=== PATIENT | female | born 1985 | race American Indian/Alaskan Native ===

== ENCOUNTER 2017-06-16 13:26 | Observation (INO) | payer MEDICAID, OTHER ==
[2017-06-16] MEDS ORDERED: Ketorolac 60 MG/2 ML SDV IM ONE (13:46)
--- NOTE | 2017-06-16 14:36 | EDM.PDOC ---
ED HPI GENERAL MEDICAL PROBLEM - General Chief Complaint: Abdominal Pain Stated Complaint: ABDOMINAL PAIN Time Seen by Provider: 06/16/17 13:30 Source of Information: Reports: Patient History Limitations: Reports: No Limitations - History of Present Illness INITIAL COMMENTS - FREE TEXT/NARRATIVE: c/o abd pain x 2m pain in upper abd in epigastrium to R and L of midline and down a little towards umbilicus, however on exam she was tender across the lower abd as well BM x 1 today, did not change pain no bfast, ate hamburger for lunch, no change in pain PSH: c/s x 2, TL, hernia repair done at same time as c/s and TL altho pt not sure where morbidly obese inc'd pian x 1w, inc'd pain x 3d, continuous pain x 3d just moved to area, has not seen a MD in past 3m Upper Abdomen Pain Score (Numeric/FACES): 8 - Related Data Allergies Allergy/AdvReac Type Severity Reaction Status Date / Time amoxicillin Allergy Rash Verified 06/16/17 13:52 Home Meds: Home Meds Formoterol/Mometasone [Dulera 100 MCG/5 MCG] 2 inh INH BID 06/16/17 [History] 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 Denies: Fever, Chills, Night Sweats HEENT: Reports: No Symptoms Respiratory: Reports: No Symptoms Cardiovascular: Reports: No Symptoms. Denies: Chest Pain Endocrine: Reports: No Symptoms GI/Abdominal: Reports: Abdominal Pain. Denies: Constipation, Diarrhea, Nausea, Vomiting : Reports: No Symptoms Musculoskeletal: Reports: No Symptoms Skin: Reports: No Symptoms Neurological: Reports: No Symptoms Psychiatric: Reports: No Symptoms Hematologic/Lymphatic: Reports: No Symptoms Immunologic: Reports: No Symptoms ED EXAM, GI/ABD - Physical Exam Exam: See Below Exam Limited By: No Limitations General Appearance: Alert, WD/WN, No Apparent Distress Ears: Normal External Exam Nose: Normal Inspection, Normal Mucosa, No Blood Throat/Mouth: Normal Inspection, Normal Lips, Normal Teeth, Normal Gums, Normal Oropharynx, Normal Voice, No Airway Compromise Head: Atraumatic, Normocephalic Neck: Normal Inspection, Supple, Non-Tender, Full Range of Motion Respiratory/Chest: No Respiratory Distress, Lungs Clear, Normal Breath Sounds, No Accessory Muscle Use, Chest Non-Tender Cardiovascular: Regular Rate, Rhythm, No Edema, No Gallop, No Murmur, No Rub GI/Abdominal Exam: Other (very large circumference, BS present, nonspecific tender across upper abd, mid abd and lower abd, not localized, only flanks NT) Back Exam: Normal Inspection, Full Range of Motion, NT Extremities: Normal Inspection, Normal Range of Motion, Non-Tender, Other ( trace pretib edema b/l) Neurological: Alert, Oriented, CN II-XII Intact, Normal Cognition, No Motor/ Sensory Deficits Psychiatric: Normal Affect, Normal Mood Skin Exam: Warm, Dry, Intact, Normal Color, No Rash Lymphatic: No Adenopathy Course - Vital Signs Last Recorded V/S: Last Vital Signs Temp 36.3 C 06/16/17 13:26 Pulse 108 H 06/16/17 13:26 Resp 18 06/16/17 13:26 BP 148/93 H 06/16/17 13:26 Pulse Ox 99 06/16/17 13:26 - Orders/Labs/Meds Orders: Active Orders 24 hr Category Date Time Status CULTURE URINE [RM] Stat Lab 06/16/17 14:06 Received LIPASE [REF] Stat Lab 06/16/17 14:15 Received Labs: Laboratory Tests 06/16/17 06/16/17 06/16/17 Range/Units 14:06 14:15 14:15 WBC 10.3 (4.5-12.0) X10-3/uL RBC 5.67 H (3.23-5.20) x10(6)uL Hgb 14.2 (11.5-15.5) g/dL Hct 44.4 (30.0-51.3) % MCV 78.2 L (80-96) fL MCH 25.0 L (27.7-33.6) pg MCHC 31.9 L (32.2-35.4) g/dL RDW 16.4 H (11.5-15.5) % Plt Count 245 (125-369) X10(3)uL MPV 10.6 H (7.4-10.4) fL Neut % (Auto) 70.5 (46-82) % Lymph % (Auto) 22.4 (13-37) % [place] % (Auto) 5.4 (4-12) % Eos % (Auto) 1 (1.0-5.0) % Baso % (Auto) 1 (0-2) % Neut # (Auto) 7.2 (1.6-8.3) # Lymph # (Auto) 2.3 (0.6-5.0) # [place] # (Auto) 0.6 (0.0-1.3) # Eos # (Auto) 0.1 (0.0-0.8) # Baso # (Auto) 0.1 (0.0-0.2) # Sodium 143 (135-145) mmol/L Potassium 3.8 (3.5-5.3) mmol/L Chloride 105 (100-110) mmol/L Carbon Dioxide 28 (21-32) mmol/L BUN 11 (7-18) mg/dL Creatinine 1.0 (0.55-1.02) mg/dL Est Cr Clr Drug Dosing 91.94 mL/min Estimated GFR (MDRD) > 60 (>60) BUN/Creatinine Ratio 11.0 (9-20) Glucose 173 H (80-116) mg/dL Calcium 9.1 (8.6-10.2) mg/dL Total Bilirubin 0.3 (0.1-1.3) mg/dL AST 51 H (5-25) IU/L ALT 67 H (12-36) U/L Alkaline Phosphatase 109 (56-112) IU/L C-Reactive Protein (0.5-0.9) mg/dL Total Protein 7.8 (6.0-8.0) g/dL Albumin 3.3 L (3.5-5.2) g/dL Globulin 4.5 g/dL Albumin/Globulin Ratio 0.7 Amylase 29 (25-115) U/L Urine Color (YELLOW) Urine Appearance (CLEAR) Urine pH (5.0-6.5) Ur Specific [place] (1.010-1.025) Urine Protein (NEGATIVE) mg/dL Urine Glucose (UA) (NEGATIVE) mg/dL Urine Ketones (NEGATIVE) mg/dL Urine Occult Blood (NEGATIVE) Urine Nitrite (NEGATIVE) Urine Bilirubin (NEGATIVE) Urine Urobilinogen (NEGATIVE) mg/dL Ur Leukocyte Esterase (NEGATIVE) Urine RBC (0) Urine WBC (0) Ur Squamous Epith Cells (NS,R,O) Urine Bacteria (NS) Urine HCG, Qual Negative (NEGATIVE) 06/16/17 06/16/17 Range/Units 14:15 14:37 WBC (4.5-12.0) X10-3/uL RBC (3.23-5.20) x10(6)uL Hgb (11.5-15.5) g/dL Hct (30.0-51.3) % MCV (80-96) fL MCH (27.7-33.6) pg MCHC (32.2-35.4) g/dL RDW (11.5-15.5) % Plt Count (125-369) X10(3)uL MPV (7.4-10.4) fL Neut % (Auto) (46-82) % Lymph % (Auto) (13-37) % [place] % (Auto) (4-12) % Eos % (Auto) (1.0-5.0) % Baso % (Auto) (0-2) % Neut # (Auto) (1.6-8.3) # Lymph # (Auto) (0.6-5.0) # [place] # (Auto) (0.0-1.3) # Eos # (Auto) (0.0-0.8) # Baso # (Auto) (0.0-0.2) # Sodium (135-145) mmol/L Potassium (3.5-5.3) mmol/L Chloride (100-110) mmol/L Carbon Dioxide (21-32) mmol/L BUN (7-18) mg/dL Creatinine (0.55-1.02) mg/dL Est Cr Clr Drug Dosing mL/min Estimated GFR (MDRD) (>60) BUN/Creatinine Ratio (9-20) Glucose (80-116) mg/dL Calcium (8.6-10.2) mg/dL Total Bilirubin (0.1-1.3) mg/dL AST (5-25) IU/L ALT (12-36) U/L Alkaline Phosphatase (56-112) IU/L C-Reactive Protein 3.4 H* (0.5-0.9) mg/dL Total Protein (6.0-8.0) g/dL Albumin (3.5-5.2) g/dL Globulin g/dL Albumin/Globulin Ratio Amylase (25-115) U/L Urine Color Yellow (YELLOW) Urine Appearance Slightly cloudy (CLEAR) Urine pH 5.0 (5.0-6.5) Ur Specific [place] 1.020 (1.010-1.025) Urine Protein Negative (NEGATIVE) mg/dL Urine Glucose (UA) Normal (NEGATIVE) mg/dL Urine Ketones 15 H (NEGATIVE) mg/dL Urine Occult Blood Moderate H (NEGATIVE) Urine Nitrite Negative (NEGATIVE) Urine Bilirubin Negative (NEGATIVE) Urine Urobilinogen Normal (NEGATIVE) mg/dL Ur Leukocyte Esterase Negative (NEGATIVE) Urine RBC 0-5 (0) Urine WBC 5-10 (0) Ur Squamous Epith Cells Moderate H (NS,R,O) Urine Bacteria Many H (NS) Urine HCG, Qual (NEGATIVE) Meds: Medications Discontinued Medications Generic Name Dose Route Start Last Admin Trade Name Toño PRN Reason Stop Dose Admin Ketorolac Tromethamine 60 mg 06/16/17 13:46 06/16/17 13:59 Toradol IM 06/16/17 13:47 60 mg ONETIME ONE Administration - Re-Assessments/Exams Free Text/Narrative Re-Assessment/Exam: 06/16/17 16:21 WBC 10k and at ULN, no left shift, no fever. However, CRP 3.4 and pt still quite tender with guarding and rebound in RLQ despite Toradol 60 mg IM. Pt's weight is 580 lbs by self report, her abd circumference is 75". CT scan in [place] can accommodate someone who is both >650 lb and <70" circumference. Pt's clinical exam is concerning for possible acute appendicitis. D/w Dr Little regarding following pt in hospital based on clinical parameters. He said that none of the 3 surgeons in [facility] would do surgery here and that she would need to be transferred if her pain worsened. D/w Dr Avendano who agreed to admit and to transfer pt tomorrow if necessary. Will give IVF, tx pain with scheduled Toradol and prn MS, and tx with antibiotic for possible diverticulitis. Will empirically do a bowel cleanout with Ducolox supp and magnesium citrate. Departure - Departure Time of Disposition: 16:27 Disposition: Refer to Observation Condition: Fair Clinical Impression: Abdominal pain, acute, right lower quadrant, Elevated C-reactive protein (CRP) , Dehydration, Hyperglycemia - Discharge Information Referrals: PCP,None [Primary Care Provider] - Forms: ED Department Discharge - My Orders Last 24 Hours: My Active Orders 06/16/17 14:06 CULTURE URINE [RM] Stat 06/16/17 14:15 LIPASE [REF] Stat - Assessment/Plan Last 24 Hours: My Active Orders 06/16/17 14:06 CULTURE URINE [RM] Stat 06/16/17 14:15 LIPASE [REF] Stat
[2017-06-16] MEDS ORDERED: Ondansetron 4 MG/2 ML SDV IV PRN (16:49)
[2017-06-16] MEDS ORDERED: Magnesium Citrate Solution 296 ML Bottle PO ONE (16:49)
[2017-06-16] MEDS ORDERED: Bisacodyl 10 MG Supp RECTAL ONE (16:49)
[2017-06-16] MEDS ORDERED: Acetaminophen 650 MG Supp RECTAL PRN (16:49)
[2017-06-16] MEDS ORDERED: Ciprofloxacin in D5W 400 MG in Premix Bag 1 BAG IV SCH ×2 (17:00)
[2017-06-16] MEDS ORDERED: Sodium Chloride 0.9% 1,000 ML IV SCH (17:00)
[2017-06-16] MEDS ORDERED: Morphine 4 MG/ML Syringe IVPUSH PRN (17:01)
[2017-06-16] MEDS ORDERED: metroNIDAZOLE/Normal Saline 500 MG in Premix Bag 1 BAG IV SCH (18:00)
--- NOTE | 2017-06-16 18:04 | PCM.HP ---
H&P History of Present Illness - General Date of Service: 06/16/17 Source of Information: Patient History Limitations: Reports: No Limitations - History of Present Illness Initial Comments - Free Text/Narative: This is a 32-year-old morbidly obese female that came to the ER with abdominal pain that she's had for several months. She says across the top of her abdomen but it's getting worse. To see in the ER and the ER doc felt her right lower quadrant was the worst pain. Because of her size and over 500 pound she was unable to fit into the CT scan. She had a normal white count is worried that is possibly could be early appendicitis. Patient states the pain is worse when she drinks carbonated beverages and caffeinated beverages. She's had her gallbladder out the past. She said 2 C-sections. She is passes stool and occasionally low but blood. No nausea, vomiting, fevers or chills. She denies dysuria, pyuria, hematuria. And because she was not able to fit into the scanner he wanted to watch her overnight to make sure that she is not getting worse or have an appendicitis. 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 History: Psychiatric History: Reports: Other (See Below) Other Psychiatric History: Post depression - Past Surgical History GI Surgical History: Reports: Cholecystectomy, Hernia, Abdominal Female Surgical History: Reports: Section, Tubal Ligation Social & Family History - Family History Family Medical History: Noncontributory - Tobacco Use Smoking Status *Q: Never Smoker - Caffeine Use Caffeine Use: Reports: None - Recreational Drug Use Recreational Drug Use: No H&P Review of Systems - Review of Systems: Review Of Systems: See Below General: Reports: No Symptoms HEENT: Reports: No Symptoms Pulmonary: Reports: No Symptoms Cardiovascular: Reports: No Symptoms Gastrointestinal: Reports: Abdominal Pain Genitourinary: Reports: No Symptoms Musculoskeletal: Reports: No Symptoms Skin: Reports: No Symptoms Psychiatric: Reports: No Symptoms Neurological: Reports: No Symptoms Hematologic/Lymphatic: Reports: No Symptoms Immunologic: Reports: No Symptoms Exam - Exam Exam: See Below - Vital Signs Vital Signs: Last Vital Signs Temp 98.3 F 06/16/17 16:30 Pulse 92 06/16/17 16:30 Resp 20 06/16/17 16:30 BP 150/105 H 06/16/17 16:30 Pulse Ox 96 06/16/17 16:30 Weight: 580 lb - Exam General: Alert, Oriented, Cooperative HEENT: Hearing Intact, Mucosa Moist & [place], Posterior Pharynx Clear, TMs Clear Neck: Supple, Trachea Midline Lungs: Clear to Auscultation, Normal Respiratory Effort Cardiovascular: Regular Rate, Regular Rhythm, Normal S1, Normal S2. No: Systolic Murmur, Diastolic Murmur GI/Abdominal Exam: Normal Bowel Sounds, Soft, No Organomegaly, No Distention, No Abnormal Bruit, No Mass, Tender (Right upper and lower quadrant.), Other ( Obese). No: Guarding, Rigid, Rebound Back Exam: Normal Inspection, Full Range of Motion Extremities: Normal Inspection, Normal Range of Motion, Non-Tender, No Pedal Edema Skin: Warm, Dry, Intact Neurological: Strength Equal Bilateral, Normal Speech, Normal Tone Neuro Extensive - Mental Status: Alert, Oriented x3, Normal Mood/Affect, Normal Cognition Neuro Extensive - Motor, Sensory, Reflexes: Normal Gait Psychiatric: Alert, Normal Affect, Normal Mood - Patient Data Result Diagrams: 06/16/17 14:15 06/16/17 14:15 *Q Meaningful Use (ADM) - VTE *Q VTE Criteria *Q: - Stroke *Q Stroke Criteria *Q: - AMI *Q AMI Criteria *Q: - Problem List (1) Abdominal pain, acute, right lower quadrant SNOMED Code(s): 476551279 ICD Code: R10.31 - RIGHT LOWER QUADRANT PAIN Status: Acute Current Visit : Yes Problem List Initiated/Reviewed/Updated: Yes Orders Last 24hrs: Active Orders 24 hr Category Date Time Status Bedrest Bathroom Privileges [RC] ASDIRECTED Care 06/16/17 16:49 Active Blood Glucose Check, Bedside [RC] QIDACANDBED Care 06/16/17 16:49 Active Oxygen Therapy [RC] PRN Care 06/16/17 16:49 Active Ready for Discharge [RC] PER UNIT ROUTINE Care 06/16/17 17:56 Active Vital Signs [RC] Q4H Care 06/16/17 16:49 Active Nothing per Oral Now Diet [DIET] Diet 06/17/17 Dinner Active C-REACTIVE PROTEIN [CHEM] AM Lab 06/17/17 05:11 Ordered CBC WITH AUTO DIFF [HEME] AM Lab 06/17/17 05:11 Ordered SEDIMENTATION RATE MANUAL [HEME] AM Lab 06/17/17 05:11 Ordered Acetaminophen [Tylenol] Med 06/16/17 16:49 Active 650 mg RECTAL Q4H PRN Ketorolac [Toradol] Med 06/16/17 20:00 Active 30 mg IVPUSH Q6H PRN Mometasone/Formoterol [Dulera 100-5 MCG] Med 06/16/17 21:00 Active 2 puff IH BIDRT Ondansetron [Zofran] Med 06/16/17 16:49 Active 4 mg IV Q4H PRN Sodium Chloride 0.9% [Normal Saline] 1,000 ml Med 06/16/17 17:00 Active IV ASDIRECTED Sulfamethoxazole/Trimethoprim [Septra] Med 06/16/17 21:00 Ordered 1 tab PO BID Resuscitation Status Routine Resus Stat 06/16/17 16:49 Ordered Medication Orders Acetaminophen (Tylenol) 650 mg RECTAL Q4H PRN PRN Reason: Mild pain/fever Sodium Chloride (Normal Saline) 1,000 mls @ 125 mls/hr IV ASDIRECTED [facility] Ketorolac Tromethamine (Toradol) 30 mg IVPUSH Q6H PRN PRN Reason: Pain (moderate 4-6) Mometasone Furoate/Formoterol Fumar (Dulera 100-5 Mcg) 2 puff IH BIDRT [facility] Ondansetron HCl (Zofran) 4 mg IV Q4H PRN PRN Reason: Nausea/Vomiting Trimethoprim/Sulfamethoxazole (Septra) 1 tab PO BID [facility] Assessment/Plan Comment:: Discussed care with this patient. She states she does not want to stay the night. I think is reasonable to have her come back in the clinic in the morning recheck her white count. Risks of rupture discussed with the patient. She does not want anything for pain tonight. She'll be discharged to home.
--- NOTE | 2017-06-16 18:06 | PCM.DCSUM1 ---
Discharge Summary - Hospital Course Free Text/Narrative:: Hospital course-patient was admitted by the ER doc for observation. When I saw her she still had her pain in the right lower quadrant upper quadrant. She elected not to stay check think is reasonable. I told her is reasonable She comes in the clinic tomorrow and gets labs done. I said if her pain is worse at night she should go to [place] the ER. The surgeon was consulted by the ER doc. Because of her size she's not able to fit into the CT scan. And they states they would not operate on her down here anyway because of her size. Brief History: This is a 32-year-old morbidly obese female that came to the ER with abdominal pain that she's had for several months. She says across the top of her abdomen but it's getting worse. To see in the ER and the ER doc felt her right lower quadrant was the worst pain. Because of her size and over 500 pound she was unable to fit into the CT scan. She had a normal white count is worried that is possibly could be early appendicitis. Patient states the pain is worse when she drinks carbonated beverages and caffeinated beverages. She's had her gallbladder out the past. She said 2 C-sections. She is passes stool and occasionally low but blood. No nausea, vomiting, fevers or chills. She denies dysuria, pyuria, hematuria. And because she was not able to fit into the scanner he wanted to watch her overnight to make sure that she is not getting worse or have an appendicitis. - Discharge Data Discharge Date: 06/16/17 Discharge Disposition: Home, Self-Care 01 Condition: Fair - Discharge Diagnosis/Problem(s) (1) Abdominal pain, acute, right lower quadrant SNOMED Code(s): 729012795 ICD Code: R10.31 - RIGHT LOWER QUADRANT PAIN Status: Acute Current Visit : Yes - Patient Instructions Diet: Regular Diet as Tolerated Activity: As Tolerated Driving: May Drive Today Showering/Bathing: May Shower Notify Provider of: Increased Pain Other/Special Instructions: 1. Discharge to home. 2. Recheck as [facility] in a.m. with a CBC. 3. Discussed the risk of possible ruptured appendix if she has appendicitis. She understands. - Discharge Plan Prescriptions/Med Rec: Sulfamethoxazole/Trimethoprim [Bactrim Ds Tablet] 1 each PO BID #6 tablet Home Medications: Home Meds Formoterol/Mometasone [Dulera 100 MCG/5 MCG] 2 inh INH BID 06/16/17 [History] Sulfamethoxazole/Trimethoprim [Bactrim Ds Tablet] 1 each PO BID #6 tablet [Rx] Forms: ED Department Discharge Referrals: PCP,None [Primary Care Provider] - - Discharge Summary/Plan Comment DC Time >30 min.: No - Patient Data Vitals - Most Recent: Last Vital Signs Temp 98.3 F 06/16/17 16:30 Pulse 92 06/16/17 16:30 Resp 20 06/16/17 16:30 BP 150/105 H 06/16/17 16:30 Pulse Ox 96 06/16/17 16:30 Weight - Most Recent: 580 lb Med Orders - Current: Current Medications Acetaminophen (Tylenol) 650 mg RECTAL Q4H PRN PRN Reason: Mild pain/fever Sodium Chloride (Normal Saline) 1,000 mls @ 125 mls/hr IV ASDIRECTED [facility] Ketorolac Tromethamine (Toradol) 30 mg IVPUSH Q6H PRN PRN Reason: Pain (moderate 4-6) Mometasone Furoate/Formoterol Fumar (Dulera 100-5 Mcg) 2 puff IH BIDRT [facility] Ondansetron HCl (Zofran) 4 mg IV Q4H PRN PRN Reason: Nausea/Vomiting Trimethoprim/Sulfamethoxazole (Septra) 1 tab PO BID [facility] Discontinued Medications Bisacodyl (Dulcolax) 10 mg RECTAL ONETIME ONE Stop: 06/16/17 16:50 Ciprofloxacin/Dextrose 400 mg/ (Premix) 200 mls @ 200 mls/hr IV Q12H [facility] Metronidazole 500 mg/ Premix 100 mls @ 100 mls/hr IV Q8H [facility] Ketorolac Tromethamine (Toradol) 60 mg IM ONETIME ONE Stop: 06/16/17 13:47 Last Admin: 06/16/17 13:59 Dose: 60 mg Magnesium Citrate (Citrate Of Magnesia) 296 ml PO ONETIME ONE Stop: 06/16/17 16:50 Morphine Sulfate (Morphine) 4 mg IVPUSH Q4H PRN PRN Reason: Pain (severe 7-10) *Q Meaningful Use (DIS) - VTE *Q VTE Criteria *Q: - Stroke *Q Stroke Criteria *Q: - AMI *Q AMI Criteria *Q:
[2017-06-16] MEDS ORDERED: Sulfamethoxazole/Trimethoprim 800-160 MG Tab PO ONE (18:21)
[2017-06-16] MEDS ORDERED: Ketorolac 30 MG/ML SDV IVPUSH PRN (20:00)
[2017-06-16] MEDS ORDERED: Formoterol/Mometasone 100-5 MCG 8.8 GM Inhaler IH SCH (21:00)
[2017-06-16] MEDS ORDERED: Sulfamethoxazole/Trimethoprim 400-80 MG Tab PO SCH (21:00)
== END 2017-06-16 18:40 | disposition home or self-care (01) ==
LOC: FB.ED 13:26 → FB.MS 16:32
PROVIDERS: ADMIT Emergency Medicine; ATTEND Family Medicine
DX: R10.31 Right lower quadrant pain (principal); J45.909 Unspecified asthma, uncomplicated; Z79.899 Other long term (current) drug therapy; Z88.1 Allergy status to other antibiotic agents; Z90.49 Acquired absence of other specified parts of digestive tract; Z98.51 Tubal ligation status
CPT/HCPCS: 36415; 80053; 81001; 81025; 82150; 83690; 85025; 86140; 87086; 87088; 87186; 96372; 99284; A9270; J1885; G0378

== ENCOUNTER 2018-05-26 18:12 | Emergency (ER) | payer MEDICAID ==
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
[2018-05-26 18:59] LABS: HEMOGLOBIN A1C 8.5 % (4.5-6.2)
== END 2018-05-26 20:30 | disposition home or self-care (01) ==
LOC: FB.ED 18:12
DX: M54.5 Low back pain (principal); M54.2 Cervicalgia; M54.6 Pain in thoracic spine; R42 Dizziness and giddiness; H53.2 Diplopia; E66.01 Morbid (severe) obesity due to excess calories; G47.33 Obstructive sleep apnea (adult) (pediatric); E28.2 Polycystic ovarian syndrome; Z88.1 Allergy status to other antibiotic agents; Z91.040 Latex allergy status; Z68.45 Body mass index [BMI] 70 or greater, adult; Z98.890 Other specified postprocedural states; V89.2XXA Person injured in unspecified motor-vehicle accident, traffic, initial encounter
CPT/HCPCS: 36415; 80048; 83036; 85025; 85610; 99282

== ENCOUNTER 2021-07-22 19:27 | Emergency (ER) | payer OTHER ==
[2021-07-22] MEDS ORDERED: Ketorolac 30 MG/ML SDV IM STA (20:18)
== END 2021-07-22 21:00 | disposition home or self-care (01) ==
LOC: FB.ED 19:27
DX: S83.92XA Sprain of unspecified site of left knee, initial encounter (principal); Z88.0 Allergy status to penicillin; Z91.040 Latex allergy status; W01.0XXA Fall on same level from slipping, tripping and stumbling without subsequent striking against object, initial encounter
CPT/HCPCS: 73562-LT; 96372; 99282; 99283; J1885

== ENCOUNTER 2022-10-11 17:42 | Emergency (ER) | payer MEDICAID ==
[2022-10-11 19:40] LABS: BASOPHILS ABSOLUTE AUTO 0.1 x10-3/uL (0.0-0.1); BASOPHILS PERCENT AUTO 0.7 % (0.2-1.5); EOSINOPHILS ABSOLUTE AUTO 0.1 x10-3/uL (0.0-0.8); EOSINOPHILS PERCENT AUTO 0.9 % (0.6-8.1); HEMATOCRIT 45.7 % (34.2-48.2); HEMOGLOBIN 15.2 g/dL (11.4-15.5); LYMPHOCYTES ABSOLUTE AUTO 2.6 x10-3/uL (1.0-4.4); LYMPHOCYTES PERCENT AUTO 28.8 % (18.4-52.1); MEAN CORPUSCULAR HEMOGLOBIN 27.4 pg (23.9-33.9); MEAN CORPUSCULAR HGB CONC 33.3 g/dL (31.9-34.8); MEAN CORPUSCULAR VOLUME 82.5 fL (76.7-100.5); MEAN PLATELET VOLUME 11.3 fL (7.1-12.4); MONOCYTES ABSOLUTE AUTO 0.5 x10-3/uL (0.3-1.0); NEUTROPHILS ABSOLUTE AUTO 5.8 x10-3/uL (1.5-6.3); NEUTROPHILS PERCENT AUTO 63.6 % (30.8-76.2); PLATELET COUNT,PLT 203 x10(3)uL (151-488); RED BLOOD CELL COUNT 5.54 x10(6)uL (3.60-5.20); RED CELL DISTRIBUTION WIDTH 14.9 % (12.3-16.5); WHITE BLOOD CELL COUNT,WBC 9.2 x10-3/uL (3.0-10.3)
[2022-10-11 19:44] LABS: BLOOD UREA NITROGEN,BUN 11 mg/dL (7-18); CARBON DIOXIDE,CO2 27 mmol/L (21-32); CHLORIDE,CL 104 mmol/L (100-110); CREATININE 1.1 mg/dL (0.55-1.02); ESTIMATED GFR 67 mL/min (>60); GLUCOSE RANDOM 103 mg/dL (80-116); POTASSIUM,K 3.8 mmol/L (3.5-5.3); SODIUM,NA 141 mmol/L (135-145)
[2022-10-11 19:50] LABS: A/G RATIO 0.8; ALANINE AMINOTRANSFERASE,ALT 31 U/L (12-36); ALBUMIN 3.8 g/dL (3.5-5.2); ALKALINE PHOSPHATASE 117 IU/L (56-112); ASPARTATE AMNIOTRANSFERASE,AST 25 IU/L (5-25); BILIRUBIN TOTAL 0.7 mg/dL (0.1-1.3); PROTEIN TOTAL,TP 8.4 g/dL (6.0-8.0)
[2022-10-11] MEDS ORDERED: hydrOXYzine HCl 50 MG/ML SDV IM ONE (20:05)
[2022-10-11] MEDS: Morphine 10 MG/ML SDV IM ONE ×2 (20:30→20:37)
[2022-10-11] MEDS ORDERED: Ketorolac 30 MG/ML SDV IM ONE (20:34)
[2022-10-11] MEDS ORDERED: Ketorolac 30 MG/ML SDV ONE (20:35)
[2022-10-12 00:37] VITALS: BP 137/74; PULSE 84
== END 2022-10-11 21:15 | disposition home or self-care (01) ==
LOC: FB.ED 17:42
DX: R10.31 Right lower quadrant pain (principal); R10.13 Epigastric pain; J45.909 Unspecified asthma, uncomplicated; E11.9 Type 2 diabetes mellitus without complications; E66.9 Obesity, unspecified; Z98.890 Other specified postprocedural states; Z90.49 Acquired absence of other specified parts of digestive tract; Z88.0 Allergy status to penicillin; Z91.040 Latex allergy status; Z79.899 Other long term (current) drug therapy; Z79.84 Long term (current) use of oral hypoglycemic drugs
CPT/HCPCS: 36415; 80053; 84484; 85025; 86140; 93005; 96372; 99284; J1885; J2270; J3410

== ENCOUNTER 2022-12-28 19:18 | Emergency (ER) | payer MEDICAID ==
[2022-12-28] MEDS ORDERED: Diphtheria,Pertussis(Acell),Tetanus Vaccine 0.5 ML Syringe IM ONE (20:06)
== END 2022-12-28 20:24 | disposition home or self-care (01) ==
LOC: FB.ED 19:18
DX: S61.211A Laceration without foreign body of left index finger without damage to nail, initial encounter (principal); E11.9 Type 2 diabetes mellitus without complications; E66.9 Obesity, unspecified; Z68.43 Body mass index [BMI] 50.0-59.9, adult; Z23 Encounter for immunization; Z88.0 Allergy status to penicillin; Z91.040 Latex allergy status; Z79.84 Long term (current) use of oral hypoglycemic drugs; Z79.899 Other long term (current) drug therapy; W26.8XXA Contact with other sharp object(s), not elsewhere classified, initial encounter
CPT/HCPCS: 12001; 90471; 90715; 99282-25

== ENCOUNTER 2024-09-02 14:34 | Emergency (ER) | payer MEDICAID ==
[2024-09-02] MEDS: Sodium Chloride 0.9% 1,000 ML IV ONE (15:10)
[2024-09-02 15:14] LABS: BASOPHILS PERCENT AUTO 0.7 % (0.2-1.5); EOSINOPHILS ABSOLUTE AUTO 0.1 x10-3/uL (0.0-0.8); EOSINOPHILS PERCENT AUTO 0.8 % (0.6-8.1); HEMATOCRIT 39.7 % (34.2-48.2); HEMOGLOBIN 13.1 g/dL (11.4-15.5); LYMPHOCYTES ABSOLUTE AUTO 2.4 x10-3/uL (1.0-4.4); LYMPHOCYTES PERCENT AUTO 38.9 % (18.4-52.1); MEAN CORPUSCULAR HEMOGLOBIN 26.6 pg (23.9-33.9); MEAN CORPUSCULAR HGB CONC 33.1 g/dL (31.9-34.8); MEAN CORPUSCULAR VOLUME 80.3 fL (76.7-100.5); MEAN PLATELET VOLUME 11.5 fL (7.1-12.4); MONOCYTES ABSOLUTE AUTO 0.5 x10-3/uL (0.3-1.0); MONOCYTES PERCENT AUTO 7.4 % (4.4-15.7); NEUTROPHILS ABSOLUTE AUTO 3.2 x10-3/uL (1.5-6.3); NEUTROPHILS PERCENT AUTO 52.2 % (30.8-76.2); PLATELET COUNT,PLT 164 x10(3)uL (151-488); RED BLOOD CELL COUNT 4.94 x10(6)uL (3.60-5.20); WHITE BLOOD CELL COUNT,WBC 6.2 x10-3/uL (3.0-10.3)
[2024-09-02 15:19] LABS: BLOOD UREA NITROGEN,BUN 8 mg/dL (7-18); CALCIUM 8.4 mg/dL (8.6-10.2); CARBON DIOXIDE,CO2 22 mmol/L (21-32); CHLORIDE,CL 104 mmol/L (100-110); CREATININE 0.8 mg/dL (0.55-1.02); EST CRCL DRUG DOSING (CG) 104.12 mL/min; ESTIMATED GFR 97 mL/min (>60); GLUCOSE RANDOM 92 mg/dL (80-116); POTASSIUM,K 3.5 mmol/L (3.5-5.3); SODIUM,NA 136 mmol/L (135-145)
[2024-09-02 15:25] LABS: A/G RATIO 0.9; ALANINE AMINOTRANSFERASE,ALT 24 U/L (12-36); ALBUMIN 3.6 g/dL (3.5-5.2); ALKALINE PHOSPHATASE 167 IU/L (56-112); ASPARTATE AMNIOTRANSFERASE,AST 22 IU/L (5-25); BILIRUBIN TOTAL 0.5 mg/dL (0.1-1.3); PROTEIN TOTAL,TP 7.5 g/dL (6.0-8.0)
[2024-09-02 16:47] LABS: BILIRUBIN,URINE NEGATIVE (NEGATIVE); GLUCOSE,URINE NORMAL (NORMAL); KETONES,URINE NEGATIVE (NEGATIVE); LEUKOCYTE ESTERASE,URINE SMALL (NEGATIVE); NITRITE,URINE POSITIVE (NEGATIVE); OCCULT BLOOD,URINE LARGE (NEGATIVE); PROTEIN,URINE NEGATIVE (NEGATIVE); UROBILINOGEN,URINE NORMAL (NEGATIVE)
[2024-09-02 16:50] LABS: APPEARANCE,URINE CLOUDY (CLEAR); COLOR,URINE YELLOW (YELLOW)
[2024-09-02 16:58] LABS: RBC,URINE 20-30 (0-5); SQUAMOUS EPITHELIAL CELLS,UR FEW (NS,R,O)
[2024-09-02 16:59] LABS: BACTERIA,URINE MANY (NS)
[2024-09-02 17:07] LABS: EPITHELIAL CELLS,URINE NOT SEEN
== END 2024-09-02 17:00 | disposition home or self-care (01) ==
LOC: FB.ED 14:34
DX: R42 Dizziness and giddiness (principal); N39.0 Urinary tract infection, site not specified; J45.909 Unspecified asthma, uncomplicated; E11.9 Type 2 diabetes mellitus without complications; E66.9 Obesity, unspecified; Z91.048 Other nonmedicinal substance allergy status; Z88.0 Allergy status to penicillin; Z79.84 Long term (current) use of oral hypoglycemic drugs; Z79.85 Long-term (current) use of injectable non-insulin antidiabetic drugs; Z79.899 Other long term (current) drug therapy; Z90.49 Acquired absence of other specified parts of digestive tract; Z68.41 Body mass index [BMI] 40.0-44.9, adult
CPT/HCPCS: 36415; 70450; 80053; 81001; 81025; 82947; 83605; 83690; 84484; 85025; 87086; 87088; 87186; 93005; 96360; 99285; J7030